=== PATIENT | male | born 1975 | race Caucasian/White ===

== ENCOUNTER 2016-10-24 12:15 | Emergency (ER) | payer OTHER ==
[~2016-10-24] VITALS: Ht 188 cm; Wt 74.8 kg
[2016-10-24 13:32] VITALS: BP 118/78
== END 2016-10-24 13:30 | disposition home or self-care (01) ==
LOC: ER 12:15
DX: S01.21XA Laceration without foreign body of nose, initial encounter (principal); W22.8XXA Striking against or struck by other objects, initial encounter; Y93.89 Activity, other specified; Y92.89 Other specified places as the place of occurrence of the external cause; Y99.8 Other external cause status

== ENCOUNTER → 2018-01-30 | Outpatient (CLI) | payer OTHER | LOC: RAD 10:05 | DX: M54.40 Lumbago with sciatica, unspecified side (principal); M25.571 Pain in right ankle and joints of right foot; M79.671 Pain in right foot; V89.2XXA Person injured in unspecified motor-vehicle accident, traffic, initial encounter ==

== ENCOUNTER → 2020-12-02 | Outpatient (CLI) | payer OTHER | LOC: CAT 11:45 | PROVIDERS: ATTEND Nurse Practitioner | DX: Z13.6 Encounter for screening for cardiovascular disorders (principal) ==